=== PATIENT | male | born 1985 | race Caucasian/White ===

== ENCOUNTER 2020-02-11 09:10 | Emergency (ER) | payer MEDICAID, SELFPAY ==
[~2020-02-11] VITALS: Ht 170.2 cm; Wt 76.8 kg
[2020-02-11] MEDS ORDERED: KETOROLAC 60 MG/2 ML VIAL (J1885) IM ONE (09:45)
[2020-02-11] MEDS ORDERED: KETO10TAB PO (10:43)
[2020-02-11 10:51] VITALS: BP 108/71
--- NOTE | 2020-02-11 12:01 | REP ---
NASAL BONES SERIES: Pain after trauma. FINDINGS: Two lateral views and an upright Anne view of the nasal bones show no evidence of a nasal bone fracture or a nasomaxillary spine fracture. Limited evaluation of the paranasal sinuses show no air fluid levels. Electronically Signed by Jorden Gill DO 02/11/2020 12:31 P
--- NOTE | 2020-02-11 12:01 | REP ---
LEFT RIBS WITH FRONTAL VIEW OF THE CHEST: REASON: Left-sided pain after trauma. FINDINGS: Five views of the ribs show no acute fracture or destructive osseous lesion. The accompanying frontal view of the chest shows no cardiomegaly, infiltrates, effusions or pneumothoraces. There are postoperative changes seen in the left upper lobe. IMPRESSION: Negative rib series. Electronically Signed by Jorden Gill DO 02/11/2020 12:31 P
== END 2020-02-11 10:55 | disposition home or self-care (01) ==
LOC: M ED 09:10
DX: S00.83XA Contusion of other part of head, initial encounter (principal); S20.212A Contusion of left front wall of thorax, initial encounter; V49.49XA Driver injured in collision with other motor vehicles in traffic accident, initial encounter; Y92.410 Unspecified street and highway as the place of occurrence of the external cause; I10 Essential (primary) hypertension; F33.9 Major depressive disorder, recurrent, unspecified; F17.210 Nicotine dependence, cigarettes, uncomplicated
CPT/HCPCS: 70160; 71101; 96372; 99284; J1885

== ENCOUNTER → 2021-12-15 | Outpatient (CLI) | payer SELFPAY ==
[~2021-12-15] MED LIST: KETO10TAB PO
== END ==
LOC: M OUTALCOH 07:48
PROVIDERS: ATTEND Psychiatry & Neurology Psychiatry
DX: Z72.0 Tobacco use (principal); Z03.89 Encounter for observation for other suspected diseases and conditions ruled out

== ENCOUNTER 2022-01-06 13:25 | Outpatient (RCR) | payer SELFPAY | END 2022-01-29 | LOC: M OUTALCOH 13:25 | PROVIDERS: ATTEND Psychiatry & Neurology Psychiatry | DX: Z03.89 Encounter for observation for other suspected diseases and conditions ruled out (principal); Z72.0 Tobacco use ==

== ENCOUNTER 2022-09-11 12:46 | Emergency (ER) | payer OTHER, SELFPAY ==
[~2022-09-11] VITALS: Ht 170.2 cm; Wt 90.5 kg
[2022-09-11 16:11] LABS: BASO % 0.3 % (0.0-1.0); EOS # 0.2 10^3/uL (0.0-0.5); EOS % 2.2 % (0.0-3.0); HEMATOCRIT 45.6 % (42.0-52.0); HEMOGLOBIN 15.4 g/dl (13.5-17.5); LYMPH # 2.5 10^3/uL (1.5-5.0); LYMPH % 35.8 % (24.0-44.0); MEAN CORPUSCULAR HEMOGLOBIN 30.8 pg (27.0-33.0); MEAN CORPUSCULAR HGB CONC 33.8 g/dl (32.0-36.5); MEAN CORPUSCULAR VOLUME 91.2 fl (80.0-96.0); MONO # 0.4 10^3/uL (0.0-0.8); NEUTROPHILS # 3.8 10^3/uL (1.5-8.5); NEUTROPHILS % 55.6 % (36.0-66.0); PLATELET COUNT, AUTOMATED 181 10^3/uL (150-450); WHITE BLOOD COUNT 6.9 10^3/uL (4.0-10.0)
[2022-09-11 16:40] LABS: ALBUMIN 3.7 GM/DL (3.2-5.2); ALT/SGPT 65 U/L (12-78); BILIRUBIN,DIRECT 0.1 MG/DL (0.0-0.2); BILIRUBIN,TOTAL 0.4 MG/DL (0.2-1.0); BLOOD UREA NITROGEN 16 MG/DL (7-18); CALCIUM LEVEL 9.1 MG/DL (8.5-10.1); CARBON DIOXIDE LEVEL 29 MEQ/L (21-32); CHLORIDE LEVEL 106 MEQ/L (98-107); CREATININE FOR GFR 1.11 MG/DL (0.70-1.30); GLOMERULAR FILTRATION RATE > 60.0 (>60); GLUCOSE, FASTING 98 MG/DL (70-100); LIPASE 220 U/L (73-393); POTASSIUM SERUM 3.7 MEQ/L (3.5-5.1); SODIUM LEVEL 141 MEQ/L (136-145); TOTAL PROTEIN 7.3 GM/DL (6.4-8.2)
[2022-09-11] MEDS ORDERED: PROT1TAB2 PO (16:43)
[2022-09-11 16:58] VITALS: BP 140/85
== END 2022-09-11 16:59 | disposition home or self-care (01) ==
LOC: M ED 12:46
DX: K62.5 Hemorrhage of anus and rectum (principal); R10.13 Epigastric pain; I10 Essential (primary) hypertension; J90 Pleural effusion, not elsewhere classified; Z87.09 Personal history of other diseases of the respiratory system; Z90.49 Acquired absence of other specified parts of digestive tract; Z90.89 Acquired absence of other organs; Z88.5 Allergy status to narcotic agent; Z79.899 Other long term (current) drug therapy; Z87.891 Personal history of nicotine dependence

== ENCOUNTER → 2023-01-04 | Outpatient (REF) ==
[~2023-01-04] MED LIST changes: +PROT1TAB2 PO
== END ==
LOC: M EMP 10:02
PROVIDERS: ATTEND Family Medicine
DX: Z11.52 Encounter for screening for COVID-19 (principal)

== ENCOUNTER 2023-08-16 08:35 | Inpatient (IN) | payer OTHER, SELFPAY ==
[~2023-08-16] VITALS: Ht 170.2 cm; Wt 84.1 kg
[2023-08-16] MEDS: cefTRIAXone SOD 2 GM in D5W MINI-BAG PLUS 50 ML IV SCH ×2 (04:00→16:38)
[2023-08-16] MEDS ORDERED: diphenhydrAMINE 50MG/ML VIAL IV ONE (09:15)
[2023-08-16] MEDS ORDERED: IBUPROFEN 600MG TAB PO ONE (09:15)
[2023-08-16] MEDS ORDERED: ACETAMINOPHEN *IV* 1,000 MG in IV 1 EA IV ONE (09:15)
[2023-08-16] MEDS ORDERED: METOCLOPRAMIDE INJ 10MG/2ML VIAL IV ONE (09:15)
[2023-08-16 10:10] LABS: RSV AMPLIFICATION NEGATIVE (NEGATIVE)
[2023-08-16 10:18] LABS: BASO % 0.7 % (0.0-1.0); EOS # 0.1 10^3/uL (0.0-0.5); HEMATOCRIT 42.4 % (42.0-52.0); HEMOGLOBIN 15.2 g/dl (13.5-17.5); LYMPH # 1.2 10^3/uL (1.5-5.0); LYMPH % 28.4 % (24.0-44.0); MEAN CORPUSCULAR HEMOGLOBIN 32.7 pg (27.0-33.0); MEAN CORPUSCULAR HGB CONC 35.8 g/dl (32.0-36.5); MEAN CORPUSCULAR VOLUME 91.2 fl (80.0-96.0); MONO # 0.4 10^3/uL (0.0-0.8); MONO % 9.4 % (2.0-8.0); NEUTROPHILS # 2.6 10^3/uL (1.5-8.5); NEUTROPHILS % 58.3 % (36.0-66.0); PLATELET COUNT, AUTOMATED 103 10^3/uL (150-450); RED BLOOD COUNT 4.65 10^6/uL (4.30-6.10); WHITE BLOOD COUNT 4.4 10^3/uL (4.0-10.0)
[2023-08-16 10:56] LABS: ALBUMIN 3.7 G/DL (3.2-5.2); BILIRUBIN,DIRECT 0.2 MG/DL (<0.4); BILIRUBIN,TOTAL 0.7 MG/DL (0.3-1.2); MAGNESIUM LEVEL 1.9 MG/DL (1.8-2.4); TOTAL PROTEIN 7.1 G/DL (5.7-8.2)
[2023-08-16 10:59] LABS: ERYTHROCYTE SEDIMENTATION RATE 15 mm/hr (0-15)
[2023-08-16] MEDS ORDERED: KETOROLAC 30 MG/ML 1ML VIAL IV ONE (11:10)
[2023-08-16] MEDS ORDERED: NS 1,000 ML IV ONE (13:05)
[2023-08-16] MEDS ORDERED: MIDAZOLAM INJ 2MG/2ML VIAL IV ONE (13:50)
[2023-08-16] MEDS ORDERED: fentaNYL 100 MCG/2 ML INJECTION IV ONE (13:50)
[2023-08-16] MEDS ORDERED: fentaNYL 100 MCG/2 ML INJECTION As Ordered ONE (13:50)
[2023-08-16] MEDS ORDERED: MIDAZOLAM INJ 2MG/2ML VIAL As Ordered ONE (13:50)
[2023-08-16 14:50] LABS: APPEARANCE, CSF CLEAR (CLEAR); COLOR, CSF COLORLESS (COLORLESS); CSF TUBE# CELL CNT TUBE 2
[2023-08-16 15:16] LABS: CSF TUBE# TP TUBE 2; TOTAL PROTEIN,CSF 121.3 MG/DL (15-45)
[2023-08-16 15:18] LABS: CSF TUBE# GLU TUBE 3
[2023-08-16] MEDS ORDERED: cefTRIAXone SOD 2 GM in D5W MINI-BAG PLUS 50 ML IV ONE (16:20)
[2023-08-16] MEDS ORDERED: VANCOMYCIN HCL 1,000 MG, VIAL MATE ADAPTER 1 EACH in D5W 250 ML IV SCH (16:20)
[2023-08-16] MEDS ORDERED: VANCOMYCIN HCL 750 MG, VIAL MATE ADAPTER 1 EACH in D5W 250 ML IV ONE (16:35)
[2023-08-16] MEDS ORDERED: VANCOMYCIN HCL 1,000 MG, VIAL MATE ADAPTER 1 EACH in D5W 250 ML IV ONE (16:35)
[2023-08-16] MEDS ORDERED: MED REC IN PROGRESS XX SCH (17:45)
[2023-08-16] MEDS ORDERED: ACETAMINOPHEN TAB 650MG DOSE (2X325MG) PO PRN (17:55)
[2023-08-16] MEDS ORDERED: HOME MED LIST COMPLETE! XX SCH (18:55)
[2023-08-16 18:59] VITALS: BP 167/79; TEMP 96.1; O2SAT 96
[2023-08-16 19:03] LABS: INR 1.01; PARTIAL THROMBOPLASTIN TIME 28.3 SECONDS (24.8-34.2)
[2023-08-16 19:19] LABS: C REACTIVE PROTEIN QUANTITATIV 3.7 MG/DL (<1.0)
[2023-08-16 19:45] LABS: HIV 1&2 SCREEN NEGATIVE (NEGATIVE)
[2023-08-16 19:53] LABS: HEPATITIS C VIRUS ABY INDEX 0.03 INDEX (<0.8)
[2023-08-16 20:06] LABS: PROCALCITONIN 0.16 ng/ml
[2023-08-17] VITALS (8 sets, daily range): BP systolic 156–180; BP diastolic 84–110; TEMP 95.8–97.3; O2SAT 96–98
[2023-08-17] MEDS: cefTRIAXone SOD 2 GM in D5W MINI-BAG PLUS 50 ML IV SCH ×2 (04:33→15:43)
[2023-08-17 06:50] LABS: BASO % 0.4 % (0.0-1.0); EOS % 0.2 % (0.0-3.0); HEMATOCRIT 41.9 % (42.0-52.0); HEMOGLOBIN 15.3 g/dl (13.5-17.5); LYMPH # 1.5 10^3/uL (1.5-5.0); LYMPH % 27.2 % (24.0-44.0); MEAN CORPUSCULAR HGB CONC 36.5 g/dl (32.0-36.5); MEAN CORPUSCULAR VOLUME 90.3 fl (80.0-96.0); MONO # 0.5 10^3/uL (0.0-0.8); MONO % 8.2 % (2.0-8.0); NEUTROPHILS # 3.6 10^3/uL (1.5-8.5); NEUTROPHILS % 63.6 % (36.0-66.0); PLATELET COUNT, AUTOMATED 146 10^3/uL (150-450); RED BLOOD COUNT 4.64 10^6/uL (4.30-6.10); WHITE BLOOD COUNT 5.6 10^3/uL (4.0-10.0)
[2023-08-17 07:08] LABS: ALBUMIN 3.3 G/DL (3.2-5.2); ALKALINE PHOSPHATASE 176 U/L (46-116); ALT/SGPT 37 U/L (7.0-40); AST/SGOT 26 U/L (<34); BILIRUBIN,DIRECT 0.2 MG/DL (<0.4); BILIRUBIN,TOTAL 0.5 MG/DL (0.3-1.2); BLOOD UREA NITROGEN 9 MG/DL (9-23); CALCIUM LEVEL 8.8 MG/DL (8.5-10.1); CARBON DIOXIDE LEVEL 25 MMOL/L (20-31); CHLORIDE LEVEL 108 MMOL/L (98-107); CREATININE FOR GFR 0.67 MG/DL (0.70-1.30); GLOMERULAR FILTRATION RATE > 60.0 (>60); GLUCOSE, FASTING 120 MG/DL (60-100); POTASSIUM SERUM 3.7 MMOL/L (3.5-5.1); SODIUM LEVEL 141 MMOL/L (136-145); TOTAL PROTEIN 6.6 G/DL (5.7-8.2)
[2023-08-17] MEDS ORDERED: ENOXAPARIN 40MG/0.4ML SYRINGE (J1650 PER 10MG) SC SCH (09:00)
[2023-08-17] MEDS ORDERED: IBUP-1022 PO (16:30)
[2023-08-17] MEDS ORDERED: AMLO1TAB25 PO (16:51)
== END 2023-08-17 17:28 | disposition home or self-care (01) | DRG 51 ==
LOC: M ED 08:35 → M ED INP 16:33 → M PCU 19:23
PROVIDERS: ADMIT Internal Medicine; ATTEND Internal Medicine
PROC: 009U3ZX Drainage of Spinal Canal, Percutaneous Approach, Diagnostic (ICD-10-PCS; principal; 2023-08-16 13:11)
DX: A87.9 Viral meningitis, unspecified (principal); D69.6 Thrombocytopenia, unspecified; R74.01 Elevation of levels of liver transaminase levels; I10 Essential (primary) hypertension; F41.9 Anxiety disorder, unspecified; R74.8 Abnormal levels of other serum enzymes; F10.20 Alcohol dependence, uncomplicated; F31.9 Bipolar disorder, unspecified; F90.9 Attention-deficit hyperactivity disorder, unspecified type; F60.0 Paranoid personality disorder; Z87.891 Personal history of nicotine dependence; Z88.5 Allergy status to narcotic agent; Z20.822 Contact with and (suspected) exposure to COVID-19

== ENCOUNTER 2023-09-11 20:57 | Emergency (ER) | payer SELFPAY ==
[~2023-09-11 20:57] MED LIST changes: +AMLO1TAB25 PO; +IBUP-1022 PO
[2023-09-11] MEDS ORDERED: ASPIRIN 81MG CHEW TABLET PO ONE (21:30)
[2023-09-11] MEDS ORDERED: NS 1,000 ML IV ONE (21:30)
[2023-09-11] MEDS: METOPROLOL 5 MG/5 ML VIAL IV PRN ×3 (21:47→22:01)
[2023-09-11 21:52] LABS: BASO % 0.3 % (0.0-1.0); EOS # 0.2 10^3/uL (0.0-0.5); HEMATOCRIT 42.3 % (42.0-52.0); HEMOGLOBIN 15.4 g/dl (13.5-17.5); LYMPH # 4.7 10^3/uL (1.5-5.0); LYMPH % 51.6 % (24.0-44.0); MEAN CORPUSCULAR HEMOGLOBIN 32.8 pg (27.0-33.0); MEAN CORPUSCULAR HGB CONC 36.4 g/dl (32.0-36.5); MEAN CORPUSCULAR VOLUME 90.2 fl (80.0-96.0); MONO # 0.5 10^3/uL (0.0-0.8); MONO % 5.8 % (2.0-8.0); NEUTROPHILS # 3.7 10^3/uL (1.5-8.5); NEUTROPHILS % 40.1 % (36.0-66.0); PLATELET COUNT, AUTOMATED 206 10^3/uL (150-450); RED BLOOD COUNT 4.69 10^6/uL (4.30-6.10); WHITE BLOOD COUNT 9.1 10^3/uL (4.0-10.0)
[2023-09-11 22:01] VITALS: BP 140/75
[2023-09-11 22:16] LABS: LIPASE 43 U/L (12-53)
[2023-09-11 22:17] LABS: CK-MB VALUE MASS 1.8 NG/ML (<3.6)
[2023-09-11 22:19] LABS: CPK CREATINE PHOSPHOKINASE 165 U/L (46-171); MB/CK RELATIVE INDEX 1.09 (< OR =4)
[2023-09-11 22:21] LABS: THYROID STIMULATING HORMONE 1.641 uIU/ML (0.55-4.78)
[2023-09-11 22:21] LABS: RSV AMPLIFICATION NEGATIVE (NEGATIVE)
[2023-09-11 22:24] LABS: ALBUMIN 3.9 G/DL (3.2-5.2); ALKALINE PHOSPHATASE 218 U/L (46-116); ALT/SGPT 52 U/L (7.0-40); AST/SGOT 41 U/L (<34); BILIRUBIN,DIRECT 0.4 MG/DL (<0.4); BILIRUBIN,TOTAL 0.6 MG/DL (0.3-1.2); BLOOD UREA NITROGEN 14 MG/DL (9-23); CALCIUM LEVEL 9.3 MG/DL (8.5-10.1); CARBON DIOXIDE LEVEL 23 MMOL/L (20-31); CHLORIDE LEVEL 104 MMOL/L (98-107); CREATININE FOR GFR 0.86 MG/DL (0.70-1.30); GLOMERULAR FILTRATION RATE > 60.0 (>60); GLUCOSE, FASTING 163 MG/DL (60-100); POTASSIUM SERUM 2.8 MMOL/L (3.5-5.1); SODIUM LEVEL 142 MMOL/L (136-145); TOTAL PROTEIN 7.4 G/DL (5.7-8.2)
[2023-09-11] MEDS ORDERED: KCL 10MEQ/100ML SWI (KRUN) 10 MEQ in IV 1 EA IV ONE (22:25)
[2023-09-11] MEDS ORDERED: POTASSIUM CHLORIDE 10% LIQ 20MEQ/15ML UDC PO ONE (22:25)
[2023-09-11 22:39] LABS: MAGNESIUM LEVEL 1.7 MG/DL (1.8-2.4)
[2023-09-11 22:55] LABS: AMPHETAMINES LEVEL URINE NEGATIVE (NEGATIVE); BARBITURATES URINE NEGATIVE (NEGATIVE); BENZODIAZEPINES URINE NEGATIVE (NEGATIVE); COCAINE METABOLITE URINE NEGATIVE (NEGATIVE); METHADONE URINE NEGATIVE (NEGATIVE); OPIATES URINE NEGATIVE (NEGATIVE)
[2023-09-11] MEDS ORDERED: MAG SULF 1GM/100ML (MAG RUN) 1 GM in IV 1 EA IV ONE ×4 (22:55)
[2023-09-11 22:57] LABS: CK-MB VALUE MASS < 1.0 NG/ML (<3.6)
[2023-09-11 22:59] LABS: CPK CREATINE PHOSPHOKINASE 145 U/L (46-171); MB/CK RELATIVE INDEX 0.68 (< OR =4)
[2023-09-11 23:08] LABS: PHENCYCLIDINE URINE NEGATIVE (NEGATIVE)
[2023-09-11 23:13] LABS: CANNABINOIDS URINE POSITIVE (NEGATIVE)
[2023-09-12] MEDS ORDERED: MAGN400T2 PO (00:28)
[2023-09-12] MEDS ORDERED: POTA-151 PO (00:28)
[2023-09-12 02:15] VITALS: BP 126/76; TEMP 98.2; O2SAT 100
== END 2023-09-12 02:27 | disposition home or self-care (01) ==
LOC: M ED 20:57
DX: R00.2 Palpitations (principal); E83.42 Hypomagnesemia; E87.6 Hypokalemia; I10 Essential (primary) hypertension; Z79.899 Other long term (current) drug therapy; Z88.5 Allergy status to narcotic agent
CPT/HCPCS: 71045; 80047; 80048; 80076; 80307; 82550; 82553; 83690; 83735; 83880; 84443; 84484; 85025; 87040; 87077; 87186; 87631; 93005; 93041; 94760; 96365; 96366; 96368; 96375; 96376; 99284; J3475

== ENCOUNTER 2023-11-26 21:04 | Emergency (ER) | payer SELFPAY ==
[~2023-11-26] VITALS: Ht 172.7 cm; Wt 85.0 kg
[~2023-11-26 21:04] MED LIST changes: +MAGN400T2 PO; +POTA-151 PO; +THIAMINE 100 MG TAB PO SCH
[2023-11-26 21:22] VITALS: TEMP 96.9
[2023-11-26] MEDS ORDERED: LORazepam 2 MG TAB PO PRN (21:45)
[2023-11-26] MEDS ORDERED: NS 1,000 ML IV ONE (21:45)
[2023-11-26] MEDS ORDERED: METOPROLOL TART 25 MG TABLET PO ONE (21:45)
[2023-11-26 21:47] LABS: BASO % 0.4 % (0.0-1.0); EOS # 0.2 10^3/uL (0.0-0.5); EOS % 3.2 % (0.0-3.0); HEMATOCRIT 43.7 % (42.0-52.0); HEMOGLOBIN 15.6 g/dl (13.5-17.5); LYMPH # 3.2 10^3/uL (1.5-5.0); LYMPH % 45.4 % (24.0-44.0); MEAN CORPUSCULAR HEMOGLOBIN 32.7 pg (27.0-33.0); MEAN CORPUSCULAR HGB CONC 35.7 g/dl (32.0-36.5); MEAN CORPUSCULAR VOLUME 91.6 fl (80.0-96.0); MONO # 0.5 10^3/uL (0.0-0.8); MONO % 6.8 % (2.0-8.0); NEUTROPHILS # 3.1 10^3/uL (1.5-8.5); NEUTROPHILS % 44.1 % (36.0-66.0); PLATELET COUNT, AUTOMATED 209 10^3/uL (150-450); RED BLOOD COUNT 4.77 10^6/uL (4.30-6.10); WHITE BLOOD COUNT 6.9 10^3/uL (4.0-10.0)
[2023-11-26] MEDS ORDERED: METOPROLOL 5 MG/5 ML VIAL IV SCH (21:50)
[2023-11-26] MEDS ORDERED: ONDANSETRON 4MG 2ML VIAL IV ONE (21:50)
[2023-11-26 22:09] LABS: ETHYL ALCOHOL (ETHANOL) 0.005 % (0.000-0.010)
[2023-11-26 22:11] LABS: BLOOD UREA NITROGEN 14 MG/DL (9-23); CALCIUM LEVEL 9.1 MG/DL (8.5-10.1); CARBON DIOXIDE LEVEL 26 MMOL/L (20-31); CHLORIDE LEVEL 104 MMOL/L (98-107); CK-MB VALUE MASS < 1.0 NG/ML (<3.6); CREATININE FOR GFR 0.87 MG/DL (0.70-1.30); GLOMERULAR FILTRATION RATE > 60.0 (>60); GLUCOSE, FASTING 141 MG/DL (60-100); MAGNESIUM LEVEL 1.7 MG/DL (1.8-2.4); POTASSIUM SERUM 3.1 MMOL/L (3.5-5.1); SODIUM LEVEL 135 MMOL/L (136-145)
[2023-11-26 22:15] LABS: RSV AMPLIFICATION NEGATIVE (NEGATIVE)
[2023-11-26] MEDS ORDERED: hydrALAZINE 20MG/ML 1ML VIAL IV STA (22:17)
[2023-11-26 22:23] LABS: CPK CREATINE PHOSPHOKINASE 115 U/L (46-171); MB/CK RELATIVE INDEX 0.86 (< OR =4)
[2023-11-26 22:24] VITALS: BP 177/103
[2023-11-26] MEDS ORDERED: ISOVUE-370 76% 100ML VIAL As Ordered ONE (22:30)
[2023-11-26] MEDS ORDERED: POTASSIUM CHLORIDE 10% LIQ 20MEQ/15ML UDC PO ONE (23:15)
[2023-11-26] MEDS ORDERED: MAG SULF 1GM/100ML (MAG RUN) 1 GM in IV 1 EA IV ONE (23:15)
[2023-11-26 23:23] LABS: CK-MB VALUE MASS < 1.0 NG/ML (<3.6)
[2023-11-26 23:28] LABS: CPK CREATINE PHOSPHOKINASE 94 U/L (46-171); MB/CK RELATIVE INDEX 1.06 (< OR =4)
[2023-11-27 00:29] LABS: AMPHETAMINES LEVEL URINE NEGATIVE (NEGATIVE); BARBITURATES URINE NEGATIVE (NEGATIVE); BENZODIAZEPINES URINE NEGATIVE (NEGATIVE); COCAINE METABOLITE URINE NEGATIVE (NEGATIVE); METHADONE URINE NEGATIVE (NEGATIVE); OPIATES URINE NEGATIVE (NEGATIVE); PHENCYCLIDINE URINE NEGATIVE (NEGATIVE)
[2023-11-27 00:32] LABS: CANNABINOIDS URINE POSITIVE (NEGATIVE)
[2023-11-27 00:53] LABS: APPEARANCE, URINE CLEAR (CLEAR); BACTERIA, URINE AUTO NEGATIVE (NEGATIVE); BILIRUBIN, URINE AUTO NEGATIVE (NEGATIVE); BLOOD, URINE BLOOD NEGATIVE (NEGATIVE); COLOR, URINE YELLOW (YELLOW); GLUCOSE, URINE (UA) AUTO NEGATIVE (NEGATIVE); KETONE, URINE AUTO NEGATIVE (NEGATIVE); LEUKOCYTE ESTERASE, URINE AUTO NEGATIVE (NEGATIVE); MUCUS, URINE SMALL (NEGATIVE); NITRITE, URINE AUTO NEGATIVE (NEGATIVE); PROTEIN, URINE AUTO NEGATIVE (NEGATIVE); RBC, URINE AUTO 3 /HPF (0-3); SPECIFIC GRAVITY URINE AUTO 1.028 (1.002-1.035); SQUAMOUS EPITHELIAL CELL UR AU 0 /HPF (0-6); UROBILINOGEN, URINE AUTO 0.2 mg/dL (0.0-2.0); WBC, URINE AUTO 1 /HPF (0-3)
[2023-11-27 01:30] VITALS: BP 136/85; O2SAT 97
[2023-11-27] MEDS ORDERED: MULTIVITAMINS/MINERALS THERAP 1 TAB PO SCH (09:00)
[2023-11-27] MEDS ORDERED: FOLIC ACID 1MG TAB PO SCH (09:00)
== END 2023-11-27 01:31 | disposition home or self-care (01) ==
LOC: M ED 21:04
DX: R07.89 Other chest pain (principal); I10 Essential (primary) hypertension; Z11.52 Encounter for screening for COVID-19; E87.1 Hypo-osmolality and hyponatremia; R00.0 Tachycardia, unspecified; Z90.49 Acquired absence of other specified parts of digestive tract; Z90.89 Acquired absence of other organs; Z88.5 Allergy status to narcotic agent; Z87.891 Personal history of nicotine dependence
CPT/HCPCS: 71045; 71275; 80048; 80307; 81001; 82077; 82550; 82553; 83735; 84484; 85025; 87631; 93005; 96361; 96365; 96375; 99285; J0360; J2405; J3475; Q9967